=== PATIENT | male | born 1990 | race Caucasian/White ===

== ENCOUNTER 2017-06-09 09:25 | Emergency (ER) | payer OTHER ==
[~2017-06-09] VITALS: Ht 182.9 cm; Wt 81.0 kg
[2017-06-09 09:25] VITALS: TEMP 36.9; Ht 182.9 cm; Wt 81.0 kg
[2017-06-09] MEDS ORDERED: MoRPHine SULFATE 4 MG/ML 1 ML CARP\\VIAL IV STA (09:34)
[2017-06-09] MEDS ORDERED: SODIUM CHLORIDE 0.9% 1000ML 1,000 ML IV STA (09:34)
[2017-06-09] MEDS ORDERED: ONDANSETRON INJ 2 MG/ML 2 ML VIAL IV STA (09:34)
[2017-06-09] MEDS ORDERED: SODIUM CHLORIDE 0.9% 500ML 500 ML IV STA (09:34)
--- NOTE | 2017-06-09 09:37 | EMERGENCY ROOM VISIT NOTE ---
History Report prepared by Sherwin: Stephanie Soto Under the Supervision of: Dr. Nader eBan M.D. First contact with patient: 09:28 Stated Complaint: FALL/ HEAD [facility] /[facility] History of Present Illness The patient is a 27 year old male who presents to the Emergency Room with complaints of a sudden fall that occurred around 30 minutes ago. He currently rates his discomfort as a 6/10 in severity. Per nursing staff, the patient was standing having blood drawn when he suddenly fell, striking his head off the concrete floor. The patient states that he was feeling dizzy when he fell. Nursing staff states that the patient had a 20 second loss of consciousness. Nursing staff additionally notes that the patient was found to have blood behind his left ear. The patient states that he was just having routine blood work today. He reports a headache. The patient denies any neck pain or other injury. He is not on any anti-coagulants. The patient is unsure if his tetanus is up to date. Source of History: patient, nursing staff Onset: 30 minutes ago Position: other (global) Symptom Intensity: 6/10 Quality: other (fall) Timing: other (sudden) Associated Symptoms: + LOC, + headache, No neck pain Note: Associated Symptoms: dizzy Review of Systems See HPI for pertinent positives & negatives. A total of 10 systems reviewed and were otherwise negative. Past Medical & Surgical Medical Problems: (1) No active medical problems Family History No pertinent family history stated. Social History Housing Status: other ([facility]) Current/Historical Medications Scheduled Duloxetine HCl (Cymbalta), 30 MG PO HS Lamotrigine (Lamictal), 25 MG PO HS Lisinopril (Prinivil), 10 MG PO DAILY Topiramate (Topamax), 50 MG PO HS Allergies Coded Allergies: No Known Allergies (Unverified , 06/09/17) Physical Exam Vital Signs Date Time Temp Pulse Resp B/P (MAP) Pulse Ox O2 Delivery O2 Flow Rate FiO2 06/09/17 11:45 67 16 110/70 100 06/09/17 11:45 67 16 110/70 100 06/09/17 11:31 110/70 06/09/17 11:30 84 17 98 06/09/17 11:00 66 21 113/70 06/09/17 10:30 66 20 115/71 100 06/09/17 10:12 110/72 06/09/17 09:40 70 06/09/17 09:25 36.9 71 21 115/68 93 Room Air 06/09/17 09:25 21 93 Physical Exam GENERAL: Patient is in no acute distress. HEENT: Somewhat stellate 4 cm left occipital laceration with minimal bleeding, no chris stepoff. No facial trauma, pupils equal and reactive to light. Left hemotympanum, Right TM is normal. NECK: No stridor, no adenopathy, no meningismus, trachea is midline. Nontender posterior c-spine. LUNGS: Clear to auscultation bilaterally, no wheeze, no rhonchi, breath sounds equal. HEART: Without murmurs gallops or rubs, regular rate and rhythm. ABDOMEN: Soft, nontender, bowel sounds positive, no hernias, no peritonitis. EXTREMITIES: No cyanosis or edema, full range of motion of all the joints without pain or difficulty, no signs for acute trauma. NEUROLOGIC: Oriented x 3, no acute motor or sensory deficits, no focal weakness. GCS 15. SKIN: Pale. No rash, no jaundice, no diaphoresis. Medical Decision & Procedures ER Provider Diagnostic Interpretation: CT results as stated below per my review and radiologist interpretation: HEAD WITHOUT CONTRAST (CT) CLINICAL HISTORY: 27 years-old Male with fall, head trauma. Symptoms are acute in nature. TECHNIQUE: Multiple axial CT images of the head were obtained without contrast. A dose lowering technique was utilized adhering to the principles of ALARA. CT DOSE: 537.48 mGy.cm COMPARISON: None. FINDINGS: No acute intracranial hemorrhage, midline shift, mass, large territorial ischemia. There is a small amount of air present along the inner table of the skull adjacent to the left temporal bone fracture. There is an acute longitudinal fracture of the left temporal bone which is seen parallel to the long axis of the petrous bone. The medial extent of the fracture into the skull base is not definitely seen. The ossicles appear intact. Moderate left mastoid effusion is noted with fluid/hemorrhage into the left seen within the epitympanum and middle ear cavity. The right mastoid air cell and middle ear cavities are clear. Imaged paranasal sinuses are generally clear. There is mild soft tissue swelling adjacent to the aforementioned left temporal bone fracture. IMPRESSION: 1. Acute longitudinal fracture of the petrous portion left temporal bone with associated hemorrhagic fluid present within the left mastoid air cells, epitympanum and left middle ear cavity. No evidence of associated ossicle injury. 2. Small volume of pneumocephalus tracks along the inner table of the skull adjacent to the left temporal bone fracture without associated acute intracranial hemorrhage identified. The above report was generated using voice recognition software. It may contain grammatical, syntax or spelling errors. Electronically signed by: Dawood Romero M.D. 06/09/2017 10:32 AM Dictated Date/Time: 06/09/2017 10:12 AM Laboratory Results 06/09/17 09:45 06/09/17 09:45 Test 06/09/17 09:45 Red Blood Count 4.42 M/uL (4.7-6.1) Mean Corpuscular Volume 90.3 fL (80-100) Mean Corpuscular Hemoglobin 32.1 pg (25-34) Mean Corpuscular Hemoglobin Concent 35.6 g/dl (32-36) RDW Standard Deviation 41.9 fL (36.4-46.3) RDW Coefficient of Variation 12.9 % (11.5-14.5) Mean Platelet Volume 11.2 fL (7.4-10.4) Anion Gap 5.0 mmol/L (3-11) Est Creatinine Clear Calc Drug Dose 102.4 ml/min Estimated GFR () 96.1 Estimated GFR (Non- 83.0 BUN/Creatinine Ratio 16.2 (10-20) Calcium Level 9.2 mg/dl (8.5-10.1) Laboratory results reviewed by me. Medications Administered Medications (Trade) Dose Ordered Sig/Gracy Route Start Time Stop Time Status Last Admin Dose Admin Sodium Chloride 500 ml @ 999 mls/hr Q31M STAT IV 06/09/17 09:34 06/09/17 10:04 DC 06/09/17 10:26 999 MLS/HR Sodium Chloride 1,000 ml @ 125 mls/hr Q8H STAT IV 06/09/17 09:34 06/09/17 12:08 DC 06/09/17 10:26 125 MLS/HR Ondansetron HCl (Zofran Inj) 4 mg NOW STAT IV 06/09/17 09:34 06/09/17 09:36 DC 06/09/17 10:30 4 MG Morphine Sulfate (MoRPHine SULFATE INJ) 4 mg NOW STAT IV 06/09/17 09:34 06/09/17 09:36 DC 06/09/17 10:30 4 MG Diphtheria/ Pertussis/Tetanus Vacc (Adacel Inj) 0.5 ml ONCE ONCE IM. 06/09/17 09:45 06/09/17 09:46 DC 06/09/17 10:29 0.5 ML ECG Indication: other (fall, loss of consciousness) Rate (beats per minute): 63 Rhythm: normal sinus Findings: no acute ischemic change, no ectopy, other (diffuse early repolarization) ED Course 0929: The patient was evaluated in room B12B. A complete history and physical exam was performed. 0934: Ordered Morphine Sulfate 4 mg IV, Zofran Inj 4 mg IV, Sodium Chloride 1000 ml @ 125 mls/hr IV, Sodium Chloride 400 ml @ 999 mls/hr IV. 0945: Ordered Lidocaine/Epinephrine 20 ml INFIL, Adacel Inj 0.5 ml IM. 1045: I discussed the patients case with Dr. Schwartz, [facility]. He has accepted the patient to their facility via ALS transfer. 1049: I reevaluated the patient and he is resting. I updated him and the guards on exam findings and the treatment plan. They all verbalized complete understanding and agreement. The patient will be transferred to [facility] for further evaluation and care. Medical Decision The patient is a 27 year old male who presents to the ED with complaints of fall. Differential diagnoses considered include Intracranial bleeding, skull fracture, concussion, anemia, dehydration, electrolyte imbalance, arrhythmia. There is no leukocytosis or concerning anemia. No significant electrolyte abnormality or kidney failure. EKG shows a sinus rhythm, no acute ischemia. On exam, there was no evidence for injury to the neck, extremities, back, chest or abdomen. The patient did have a left posterior scalp laceration and there was blood behind the left ear drum. Brain CT was done, there was evidence for a skull fracture with blood in the left mastoid and left middle ear. Given the skull fracture, I did contact the [facility] trauma [facility]. The patient was accepted to their facility. The patient is being sent there by ground ambulance. During the patient's stay, he was given an Adacel booster IM, he received IV morphine, IV saline and IV Zofran. He is comfortable. His wound was dressed. The papers for transfer were completed. Head Trauma GCS Score: 15 Consults Time Called: 1043 Consulting Physician: Dr. Schwartz, [facility] Returned Call: [phone] I discussed the patients case with Dr. Schwartz, [facility]. He has accepted the patient to their facility via ALS transfer. Impression Primary Impression: Skull fracture Additional Impressions: Hematotympanum of left ear Scalp laceration Fall Scribe Attestation The scribe's documentation has been prepared under my direction and personally reviewed by me in its entirety. I confirm that the note above accurately reflects all work, treatment, procedures, and medical decision making performed by me. Departure Information Dispostion Transfer Acute Care Facility Problem Qualifiers
[2017-06-09] MEDS: LIDO/EPINEPHRINE/SOD BICARB 20 ML VIAL INFIL ONE ×2 (09:45→10:30)
[2017-06-09] MEDS ORDERED: DIPHTHERIA/TETANUS/PERTUSSIS 0.5 ML SYR/VIAL IM. ONE (09:45)
[2017-06-09 10:04] LABS: HEMATOCRIT 39.9 % (42-52); MEAN CELL VOLUME 90.3 fL (80-100); MEAN CORPUSCULAR HEMOGLOBIN 32.1 pg (25-34); MEAN CORPUSCULAR HGB CONC 35.6 g/dl (32-36); MEAN PLATELET VOLUME 11.2 fL (7.4-10.4); PLATELET COUNT 241 K/uL (130-400); RED BLOOD COUNT 4.42 M/uL (4.7-6.1); WHITE BLOOD COUNT 10.26 K/uL (4.8-10.8)
[2017-06-09 10:20] LABS: BUN/CREATININE RATIO 16.2 (10-20); CALCIUM 9.2 mg/dl (8.5-10.1); CREATININE 1.2 mg/dl (0.60-1.40); POTASSIUM 4.3 mmol/L (3.5-5.1)
[2017-06-09] MEDS ORDERED: LAMO25TA PO (10:26)
[2017-06-09] MEDS ORDERED: CYM/30 PO (10:26)
[2017-06-09] MEDS ORDERED: TOPI50TA16 PO (10:26)
[2017-06-09] MEDS ORDERED: LISI10TA PO (10:26)
--- NOTE | 2017-06-09 10:33 | DIAGNOSTIC IMAGING REPORT ---
HEAD WITHOUT CONTRAST (CT) CLINICAL HISTORY: 27 years-old Male with fall, head trauma. Symptoms are acute in nature. TECHNIQUE: Multiple axial CT images of the head were obtained without contrast. A dose lowering technique was utilized adhering to the principles of ALARA. CT DOSE: 537.48 mGy.cm COMPARISON: None. FINDINGS: No acute intracranial hemorrhage, midline shift, mass, large territorial ischemia. There is a small amount of air present along the inner table of the skull adjacent to the left temporal bone fracture. There is an acute longitudinal fracture of the left temporal bone which is seen parallel to the long axis of the petrous bone. The medial extent of the fracture into the skull base is not definitely seen. The ossicles appear intact. Moderate left mastoid effusion is noted with fluid/hemorrhage into the left seen within the epitympanum and middle ear cavity. The right mastoid air cell and middle ear cavities are clear. Imaged paranasal sinuses are generally clear. There is mild soft tissue swelling adjacent to the aforementioned left temporal bone fracture. IMPRESSION: 1. Acute longitudinal fracture of the petrous portion left temporal bone with associated hemorrhagic fluid present within the left mastoid air cells, epitympanum and left middle ear cavity. No evidence of associated ossicle injury. 2. Small volume of pneumocephalus tracks along the inner table of the skull adjacent to the left temporal bone fracture without associated acute intracranial hemorrhage identified. The above report was generated using voice recognition software. It may contain grammatical, syntax or spelling errors. Electronically signed by: Dawood Romero M.D. 06/09/2017 10:32 AM Dictated Date/Time: 06/09/2017 10:12 AM
[2017-06-09 11:45] VITALS: BP 110/70; PULSE 67; O2SAT 100
== END 2017-06-09 11:40 | disposition short-term general hospital (02) ==
LOC: C.EDB 09:28
DX: S02.19XA Other fracture of base of skull, initial encounter for closed fracture (principal); H74.8X2 Other specified disorders of left middle ear and mastoid; S01.01XA Laceration without foreign body of scalp, initial encounter; W01.198A Fall on same level from slipping, tripping and stumbling with subsequent striking against other object, initial encounter; Y92.239 Unspecified place in hospital as the place of occurrence of the external cause; Y93.89 Activity, other specified; Z79.899 Other long term (current) drug therapy